=== PATIENT | male | born 1930 | race Caucasian/White ===

== ENCOUNTER 2016-05-12 06:57 | Observation (INO) | payer OTHER ==
[2016-05-12] VITALS (15 sets, daily range): BP systolic 109–167; BP diastolic 58–99; PULSE 86–102; TEMP 36.3–37; O2SAT 96–100; Ht 177.8 cm; Wt 88.9 kg
[~2016-05-12] VITALS: Ht 177.8 cm; Wt 88.9 kg
[2016-05-12] MEDS ORDERED: METO-217 PO (07:25)
[2016-05-12] MEDS ORDERED: PRED-301 PO (07:25)
--- NOTE | 2016-05-12 08:30 | Procedure Note ---
Pre-Mod Sedation Assessment General Date of Moderate Sedation: May 12, 2016. Vital Signs: Vital Signs Past 12 Hours Date Time Temp Pulse Resp B/P Pulse Ox O2 Delivery O2 Flow Rate FiO2 05/12/16 07:26 36.9 102 16 167/99 97 Room Air Review Cardiovascular: + tachycardia, + irregularly irregular Abdomen: soft Lungs: lungs clear Airway Class: II Pre-Sedation Airway Assessment Oral Cavity: WNL Short Thick Neck: No Hx of Sleep Apnea: No Smoking Status: Never Smoker Mallampati Classification: Class II ASA Classification: Class II Procedure Planning Contraindications-for Mod Sed: None Yes Notes The planned sedation has been discussed with the patient and consent obtained. I have identified the patient, determined the appropriateness of sedation and have assessed the patient immediately prior to the procedure. All medicine(s) and interventions are by my order.
--- NOTE | 2016-05-12 08:30 | History & Physical Bridge Note ---
H&P Re-Evaluation Bridge Note: I have examined the patient, reviewed the History & Physical and in the interval since the performance of the History & Physical I have noted the following changes of clinical significance: No changes noted
[2016-05-12] MEDS ORDERED: KEFZOL SPECIAL PROCEDURE STOCK 1 GM ADDVIAL IV ONE (08:36)
[2016-05-12] MEDS ORDERED: FENTANYL CITRATE INJ 50 MCG/1 ML 2 ML VIAL ONE ×2 (08:37→09:36)
[2016-05-12] MEDS ORDERED: LIDOCAINE HCL 1% 20 ML VIAL ONE (08:37)
[2016-05-12] MEDS ORDERED: MIDAZOLAM HCL 5 MG/ML 1 ML VIAL ONE (08:37)
[2016-05-12] MEDS ORDERED: BACITRACIN 50000 UNIT VIAL ONE ×2 (08:38→09:36)
[2016-05-12] MEDS ORDERED: BUPIVACAINE 0.5 % 5 MG/1 ML MPF 30ML VIAL ONE (08:38)
[2016-05-12] MEDS ORDERED: WARF5TAB90 PO (09:10)
[2016-05-12] MEDS ORDERED: ARTISOL12 OP (09:10)
[2016-05-12] MEDS ORDERED: ATOR10TA82 PO (09:10)
[2016-05-12] MEDS ORDERED: LATA0.5S OP (09:10)
[2016-05-12] MEDS ORDERED: PYRI60TA2 PO (09:10)
[2016-05-12] MEDS ORDERED: LOSA1TAB PO (09:10)
[2016-05-12] MEDS ORDERED: DOCU-94 PO (09:10)
[2016-05-12] MEDS ORDERED: CHOL1000 PO (09:10)
[2016-05-12] MEDS ORDERED: DILT120C PO (09:10)
[2016-05-12] MEDS ORDERED: MULT-618 PO (09:10)
[2016-05-12] MEDS ORDERED: ASPI81TA28 PO (09:10)
[2016-05-12] MEDS ORDERED: MIDAZOLAM HCL 1 MG/ML 2ML VIAL ONE (09:36)
[2016-05-12] MEDS ORDERED: OXYCODONE/ACETAMINOPHEN 5-325 TAB PO PRN (10:45)
[2016-05-12] MEDS ORDERED: ACETAMINOPHEN 325 MG TAB PO PRN (10:45)
--- NOTE | 2016-05-12 10:52 | Discharge Summary ---
Discharge Summary Admission Date: Discharge Date: May 13, 2016 Discharge Disposition: Home Principal Diagnosis: Permanent atypical Atrial flutter with RVR, pt intolerant to AVN blockers Secondary Diagnoses/Problems: CAD s/p RCA PCI 12/2015 pAF on coumadin h/o PVI ablations in past and DCCV, refractory to multiple anti- arrhythmics HTN PVCs Myasthenia gravis Procedures: Single chamber permanent pacemaker followed by AVN ablation Hospital Course Pt admitted for elective VVI pacemaker implantation followed by AVN ablation due to permanent symptomatic atypical atrial flutter with RVR with patient intolerant to AVN blockers. Pt underwent procedure without any complications. Monitored overnight; on following morning ppm check he did have some intrinsic rhythm come through the AVN at 60bpm so the AVN ablation maybe not complete-we will monitor and assess in follow up. and discharged home in stable condition. Total time spent on discharge = This includes examination of the patient, discharge planning, medication reconciliation, and communication with other providers. Discharge Instructions ACTIVITY RECOMMENDATIONS: * Do not raise affected arm over head for 6 weeks. SPECIAL CARE INSTRUCTIONS: * If bleeding occurs, apply direct pressure to area for 5 minutes. * Call your doctor if you have severe pain, fever, drainage or bleeding at site. * Keep dry for 48 hours. * Keep any scheduled doctor's appointment. * Implant Card - hand held device with website information given. SKIN IRRITATION: * You may experience some redness and/or swelling in the area where radiation was administered. If any skin irritation occurs, please contact your family physician. FOLLOW UP VISIT: Keep any scheduled doctor appointments.
--- NOTE | 2016-05-12 10:55 | Discharge Instructions ---
Discharge Instructions Admission Reason for Admission: A-FIB Discharge Discharge Diagnosis / Problem: permanent atypical atrial flutter with RVR Discharge Goals Goal(s): Improve function Activity Recommendations Activity Limitations: as noted below Lifting Limitations: no more than 10 pounds (with the left arm for 3 weeks; do not lift the left elbow over the left shoulder for 6 weeks) May Resume Sexual Activity: after follow-up appointment Shower/Bathe: tomorrow . Instructions / Follow-Up Instructions / Follow-Up Follow up in [place] [facility] in 7-10 days Current Hospital Diet Patient's current hospital diet: AHA Diet (Heart Healthy) Discharge Diet Recommended Diet: AHA Diet (Heart Healthy) Procedures Procedures Performed: single chamber pacemaker followed by AVN ablations Pending Studies Studies pending at discharge: no Medical Emergencies . Who to Call and When: Medical Emergencies: If at any time you feel your situation is an emergency, please call 911 immediately. . Non-Emergent Contact Non-Emergency issues call your: Data Center Operator . . "Provider Documentation" section prepared by Fabby Meier. VTE Core Measure Inpt VTE Proph given/why not?: Warfarin (Coumadin)
--- NOTE | 2016-05-12 11:01 | Procedure Note ---
Post-Mod Sedation Assessment General Date of Moderate Sedation May 12, 2016. Vital Signs: Vital Signs Past 12 Hours Date Time Temp Pulse Resp B/P Pulse Ox O2 Delivery O2 Flow Rate FiO2 05/12/16 07:26 36.9 102 16 167/99 97 Room Air Review - Discharge Criteria Vital Signs Stable: Yes Alert/Oriented/Conversant: Yes Returned to Baseline Mental St: Yes Nausea Absent/Minimal: Yes Pain/Discomfort/Absent/Minimal: Yes Normal/Baseline Respirations: Yes Active Bleeding?: No Pt Received D/C Instructions: N/A Prescriptions Given: None Specific Proced. D/C Criteria Distal Pulses Present (Cardiac: Yes Groin site assessed-Card Cath: Yes Voided Prior To Discharge: Yes Discharged Patients Adult Escort/Transportation: N/A
--- NOTE | 2016-05-12 11:01 | [facility] Post Operative Brief Note ---
Immediate Operative Summary Operative Date May 12, 2016. Pre-Operative Diagnosis permanent atypical atrial flutter with RVR Post-Operative Diagnosis permanent atypical atrial flutter, CHB Procedure(s) Performed single chamber pacemaker followed by AVN ablation Surgeon neelima wise Supervising Appraiser Surgeon(s) none Estimated Blood Loss <10cc Findings none Fluids (cc crystalloids) 500cc Specimens none Drains none Anesthesia 7mg versed and 175mcg fentantyl Complication(s) None Disposition petroleum refinery laborer holding
[2016-05-12 13:05] LABS: INR 1.5 (0.9-1.1)
--- NOTE | 2016-05-12 13:06 | OPERATIVE REPORT ---
DATE OF OPERATION: 05/12/2016 PREOPERATIVE DIAGNOSES: Permanent atrial flutter with rapid ventricular response intolerant to AV beto blockers. POSTOPERATIVE DIAGNOSES: Permanent atrial flutter, complete heart block. PROCEDURE: Single chamber rate responsive permanent pacemaker under fluoroscopic guidance, followed by peripheral venogram, followed then by an AV beto ablation. SURGEON: Dr. Fabby Meier DO. BUSINESS ANALYST ECOMMERCE: None. ANESTHESIA: 7 mg of Versed, 175 mcg of fentanyl. START 08:57 END 11:00 INTRAVENOUS FLUIDS: 500 mL. URINE OUTPUT: Not applicable. SPECIMENS: None. FINDINGS: None. CONDITION: Stable. ESTIMATED BLOOD LOSS: Less than 10 mL. INDICATIONS: This is an 86-year-old gentleman who has a past medical history for coronary artery disease in which he underwent a stent to the RCA in December 2015, paroxysmal atrial fibrillation where he underwent prior PVI ablations, 2 in [place] in 1999 and 2001 and another at [facility] [place] [facility] in 2006. He has failed multiple antiarrhythmic medicines. He has also been cardioverted in March 2013. Remains on Coumadin, hypertension, frequent PVCs on prior Holter monitors, seemed to improve with stopping antiarrhythmic, myasthenia gravis, permanent atypical atrial flutter. The patient has been trying multiple different AV beto carli combinations to control his heart rate due to his permanent atrial flutter, but he has been refractory to all of them and intolerant as well. Finally, after many months of trying we opted to go with a permanent pacemaker followed by an AV beto ablation. CONSENT: Consent was obtained prior to the patient going into the electrophysiology lab. The patient was informed of risks, benefits, alternatives to the procedure. Risks include but not limited to sudden cardiac , cardiac arrhythmias, cerebrovascular accident, myocardial infarction, injury to the blood vessels, chamber of the heart, lungs, bleeding and infection, possible hematoma and blood clots. The patient understood these risks and agreed to the procedure as planned. Informed consent was obtained. DESCRIPTION OF THE PROCEDURE: The patient was brought into the electrophysiology lab in a fasting state. He was connected to continuous pvc monitor. A time-out was performed to ensure patient's identity and procedure correctly. The patient was prepped and draped over the left infraclavicular space in normal surgical standard fashion. Moderate conscious sedation was given throughout the procedure for patient's comfort level. [place] precautions were maintained throughout the procedure. 10 mL of 1% lidocaine, bupivacaine mixture were given in the left deltopectoral groove. Incision was made in left deltopectoral groove. Further 10 mL of lidocaine, bupivacaine mixture were given once we were in and blunt dissection was performed down to identify the cephalic vein. Initially one could not be identified, so I did a peripheral venogram with 5-10 mL of IV contrast diluted in 10 mL of saline followed by 20 mL flushed and we identified the axillary and cephalic vein. I then continued with blunt dissection and found the cephalic vein, I isolated it using 0 silk ties, nicked it with an 11 blade, guidewire was inserted without any resistance. The 8-Montenegrin sheath was then inserted over the guidewire without any resistance. The guidewire and dilator were removed. The right ventricular lead was then placed into the right ventricle and positioned interatrial ventricular apex under fluoroscopic guidance. There was adequate pacing and sensing thresholds and no diaphragmatic stimulation with high output pacing. The lead was fixated to pectoralis muscle using 0 silk suture. An additional 5 mL of 1% lidocaine, bupivacaine mixture were given in the pectoralis fascia using blunt dissection over the pectoralis muscle within the fascia. A pacemaker pocket was created. The pocket was flushed with copious amounts of bacitracin saline wash. There was some backbleeding from the venous puncture site, so a pursestring using 2-[address] needle was placed. The lead was then attached to the pulse generator making sure that the pins were in appropriate position, passed the set screws and the set screws were all tightened. The pulse generator was then placed in the pocket and a stay stitch using 0 silk suture was used to sew down the pulse generator to the pectoralis muscle. The incision was closed in a 3-layer fashion using a 2-0 Vicryl interrupted suture followed by 3-0 Vicryl interrupted suture followed by a 4-0 Monocryl running stitch and Dermabond was applied. We then de-draped the patient and re-prepped over them bilateral groins. Then 10 mL of 1% lidocaine were given in the right groin for local anesthesia. Using the modified Seldinger technique, venous access was obtained with the right femoral vein. An 8-Montenegrin sheath was inserted over the guidewire without any resistance. The guidewire and dilator removed. A RF 8 mm Blazer XP standard curve ablation catheter was inserted and under fluoroscopic guidance positioned into the His bundle area. His bundle was recorded on the distal tip of the catheter and then radiofrequency ablation 4 times was given 30 seconds each, temperature of 60 degrees, 70 teixeira was the setting and a complete heart block was obtained. The last 2 ablations were reassurance ablations. Of note, the pacemaker was set to VVI 30 during the ablation. Then we did a 20 minute monitor post-ablation to ensure that the radiofrequency ablation had maintained with the pacemaker set at a heart rate of 80. After 20 minutes of adequate waiting the patient still remained in complete heart block. The pacemaker was retracted, threshold and impedance remained stable. The radiofrequency ablation catheter was removed from the body under fluoroscopic guidance. Then manual compression was used to create hemostasis with pulling of the 8-Montenegrin sheath in the right groin. EQUIPMENT: [employer] Produce[employer] SR MRI SureScan A3 SR01, serial number [id number]. Right ventricular lead, Medtronic 5076-58 cm, serial number [id number]. INTRAOPERATIVE TESTING: Right ventricular lead P waves were 10.8 millivolts, impedance 976 ohms, threshold 0.3 volts at 0.4 milliamps. FINAL MEASUREMENTS: After the AV beto ablation. R-waves were none as the patient was completely paced at 30 beats per minute. The impedance was 655 ohms, threshold 0.5 volts at 0.4 milliseconds. FINAL PARAMETERS: VVIR 90/110, right ventricular amplitude 5 volts, pulse width 0.4 milliseconds, sensitivity 0.9 millivolts. IMPRESSION: Successful implantation of a single chamber rate responsive permanent pacemaker under fluoroscopic guidance followed by peripheral venogram followed by an AV beto ablation secondary to permanent atypical atrial flutter with rapid ventricular response. PLAN: Monitor patient overnight, 12-lead ECG, chest x-ray. We will stop his Cardizem and metoprolol, otherwise he can continue his other home medications. He can get Coumadin tonight. He cannot lift the left elbow over the left shoulder for 6 weeks and he cannot lift more than 10 pounds for 3 weeks with the left arm and he is not allowed to shoot a shotgun from the left shoulder anymore. He can shower in 2 days. We will see him in our [place] office in 7-10 days for device and wound check. I attest to the content of the Intraoperative Record and any orders documented therein. Any exceptions are noted below. MTDD
[2016-05-12] MEDS: ARTIFICIAL TEARS OP SOLN OP SCH ×6 (14:21→20:29)
[2016-05-12] MEDS ORDERED: WARFARIN SOD 5 MG TAB PO ONE (18:00)
[2016-05-12] MEDS: DOCUSATE SODIUM 100 MG CAP PO SCH (20:25)
[2016-05-12] MEDS: PYRIDOSTIGMINE BROMIDE 60 MG TAB PO SCH (20:27)
[2016-05-12] MEDS ORDERED: LATANOPROST 0.005% OP SOLN 2.5 ML BTL OP SCH (21:00)
[2016-05-12] MEDS ORDERED: ATORVASTATIN 10 MG TAB PO SCH (21:00)
[2016-05-13 04:15] VITALS: BP 137/71; PULSE 89; TEMP 36.9; O2SAT 96
[2016-05-13 06:04] LABS: INR 1.3 (0.9-1.1); PROTHROMBIN TIME (PATIENT) 14.2 SECONDS (9.0-12.0)
[2016-05-13 07:41] VITALS: BP 134/68; PULSE 90; TEMP 36.4; O2SAT 96
[2016-05-13] MEDS: DOCUSATE SODIUM 100 MG CAP PO SCH (08:10)
[2016-05-13] MEDS: PYRIDOSTIGMINE BROMIDE 60 MG TAB PO SCH (08:11)
[2016-05-13] MEDS: ARTIFICIAL TEARS OP SOLN OP SCH ×2 (08:13)
--- NOTE | 2016-05-13 08:13 | DIAGNOSTIC IMAGING REPORT ---
CHEST 2 VIEWS ROUTINE CLINICAL HISTORY: Pacemaker insertion. COMPARISON STUDY: No previous studies for comparison. FINDINGS: A single lead left subclavian pacemaker is in place. Lead tip projects over the right ventricle. There is no pneumothorax. There is no evidence of pulmonary edema. There are median sternotomy wires and anterior cervical spine fusion. There is no consolidation. IMPRESSION: No pneumothorax following placement of a left subclavian pacemaker. Electronically signed by: Tomas Conte M.D. 05/13/2016 8:11 AM
[2016-05-13] MEDS ORDERED: CHOLECALCIFEROL 1000 INTER.UNIT TAB PO SCH (09:00)
[2016-05-13] MEDS ORDERED: LOSARTAN POTASSIUM 25 MG TAB PO SCH (09:00)
[2016-05-13] MEDS ORDERED: ASPIRIN 81 MG ECTAB PO SCH (09:00)
[2016-05-13] MEDS ORDERED: CEROVITE ADV FORMULA TAB PO SCH (09:00)
[2016-05-13 09:46] VITALS: BP 134/68; PULSE 90; TEMP 36.4; O2SAT 96
--- NOTE | 2016-05-13 16:11 | Cardiology Follow-Up ---
Subjective Subjective Date of Service: May 13, 2016. Pt evaluation today including: conversation w/ patient, physical exam, chart review, lab review, review of studies Pain: minimal discomfort at incision site Review of Systems Constitutional: + weakness Respiratory: No shortness of breath Cardiac: No chest pain, No edema, No palpitations Abdomen: No diarrhea, No nausea Endo: + fatigue Objective Vital Signs Last Vital Signs Documentation Date Time Temp Pulse Resp B/P Pulse Ox O2 Delivery O2 Flow Rate FiO2 05/13/16 09:46 36.4 90 20 96 Room Air 05/13/16 07:41 134/68 Physical Exam: General Appearance: WD/WN, no apparent distress Eyes: bilateral eyes EOMI, bilateral eyes PERRL, bilateral eyes normal inspection Neck: supple Respiratory/Chest: lungs clear, normal breath sounds Cardiovascular: regular rate, rhythm, no edema, no murmur Neurologic/Psychiatric: alert, oriented x 3 Skin: normal color (left pectoral incision intact; no hematoma; mild ecchymosis ), warm/dry Assessment and Plan Impression: 1. permanent atypical symptomatic atrial flutter with RVR refractory and intolerant to AVN blockers s/p VVI ppm and AVN ablation 05/12/2015 2. CAD s/p PCI in 12/2015 3. PVCs 4. HTN Plan: -normal pacemaker function -Ok for discharge home -Continue home medications with the exception of BB and CCB -F/u in our office next week as scheduled -F/u with me in 1 month Discharge planning: home Medications: Pacemaker Interrogation: There is now underlying ventricular rhythm in 60s RV testing stable and WNL ECG: Vpaced 90bpm underlying flutter CXR: No PTX RV lead in position Medications Administered Medications (Trade) Dose Ordered Sig/Cyn Route Start Time Stop Time Status Last Admin Dose Admin Cefazolin Sodium (Kefzol IV) 2 gm STK-MED ONCE IV 05/12/16 08:36 05/12/16 08:38 DC 05/12/16 08:36 2 GM Fentanyl Citrate (Fentanyl Inj) 100 mcg STK-MED ONCE .ROUTE 05/12/16 08:37 05/12/16 08:38 DC 05/12/16 08:37 100 MCG Aspirin (Ecotrin Tab) 81 mg DAILY PO 05/13/16 09:00 05/13/16 12:04 DC 05/13/16 08:13 81 MG Cholecalciferol (Vitamin D Tab) 1,000 inter.unit DAILY PO 05/13/16 09:00 05/13/16 12:04 DC 05/13/16 08:11 1,000 INTER.UNIT Latanoprost (Xalatan Oph Soln) 1 drops HS OP 05/12/16 21:00 05/13/16 12:04 DC 05/12/16 20:27 1 DROPS Losartan Potassium (coZAAR TAB) 25 mg DAILY PO 05/13/16 09:00 05/13/16 12:04 DC 05/13/16 08:11 25 MG Multivitamins/ Minerals (Multivitamin W/ Minerals Tab) 1 tab DAILY PO 05/13/16 09:00 05/13/16 12:04 DC 05/13/16 08:12 1 TAB Prednisone (PredniSONE TAB) 5 mg DAILY PO 05/13/16 09:00 05/13/16 12:04 DC 05/13/16 08:12 5 MG Pyridostigmine Henderson (Mestinon Tab) 60 mg BID PO 05/12/16 21:00 05/13/16 12:04 DC 05/13/16 08:11 60 MG Warfarin Sodium (Coumadin Tab) 5 mg ONE ONCE PO 05/12/16 18:00 05/12/16 18:01 DC 05/12/16 18:10 5 MG Artificial Tears (Artificial Tears) 1 drops QID OP 05/12/16 13:00 05/13/16 12:04 DC 05/13/16 08:13 1 DROPS Last 24 Hours Test 05/13/16 05:20 Prothrombin Time 14.2 SECONDS Prothromb Time International Ratio 1.3
[2016-06-04] MEDS ORDERED: METO25TA56 PO (07:43)
== END 2016-05-13 12:04 | disposition home or self-care (01) ==
LOC: C.ACU 06:57 → C.2E 10:46
PROVIDERS: ADMIT Internal Medicine; ATTEND Internal Medicine
DX: I48.92 Unspecified atrial flutter (principal); I44.2 Atrioventricular block, complete; I25.10 Atherosclerotic heart disease of native coronary artery without angina pectoris; I10 Essential (primary) hypertension; I48.0 Paroxysmal atrial fibrillation; I49.3 Ventricular premature depolarization; Z79.01 Long term (current) use of anticoagulants

== ENCOUNTER → 2016-06-04 | Day surgery (SDC) | payer OTHER ==
[~2016-06-04] VITALS: Ht 177.8 cm; Wt 89.0 kg
[~2016-06-04] MED LIST: ACETAMINOPHEN 325 MG TAB PO PRN; ARTISOL12 OP; ASPI81TA28 PO; ATOR10TA88 PO; ATROPINE SULFATE 0.1 MG/ML 5ML SYR IV PRN; CHOL1000 PO; DOCU-94 PO; FENTANYL CITRATE INJ 50 MCG/1 ML 2 ML VIAL ONE; HEPARIN SOD (PORCINE) 1000 UNIT/ML 10 ML VIAL ONE; LATA0.5S OP; LOSA1TAB PO; METO25TA56 PO; MIDAZOLAM HCL 1 MG/ML 2ML VIAL ONE; MULT-618 PO; NITROGLYCERIN/D5W 100MCG/ML 20ML SYR ONE; NiCARDipine HCL INJ 2.5 MG/ML 10 ML AMP ONE; ONDANSETRON INJ 2 MG/ML 2 ML VIAL IV PRN; PRED-301 PO; PYRI60TA2 PO; SODIUM CHLORIDE 0.9% 1000ML 250 ML IV PRN; WARF5TAB90 PO
[2016-06-04 07:15] VITALS: BP 172/82; PULSE 81; TEMP 36.6; O2SAT 96; Ht 177.8 cm; Wt 89.0 kg
--- NOTE | 2016-06-04 09:58 | Cardiac Catheterization ---
Procedure Note Procedure Date Jun 04, 2016. Pre-Procedure Diagnosis CAD, Cardiothoracic Symptom AUC Score 8 Post-Procedure Diagnosis Mild CAD Procedure(s) Performed Coronary Angiography, Left Heart Cath Room Service Server Dr. Astudillo Dough Sheeter(s) Valentín ACQUISITION MANAGER Estimated Blood Loss 5cc Medication(s) Heparin, Nicardipine, Nitroglycerin, Versed, Lidocaine 1% Summary of Findings Patent RCA stent otherwise nonobstructive CAD Elevated LVEDP Hemodynamics Rest Ao: 109/62/85 Final Ao: 129/60/90 LV: 130/18/23 Recommendations Medical therapy and/or Counseling Specimens None Radiation Exposure (mGy) 718 Contrast (mls) 80 Procedural Complication(s) None Disposition Craft Coordinator Holding/Recovery ACC Data Cardiac Status Clinical evaluation leading to the procedure CAD Presntation: Stable angina Anginal Classification: CCS III Heart Failure: No Cardiogenic Shock w/in 24Hrs: No Cardiac Arrest w/in 24Hrs: No Stress studies past 6 months: Yes Stress Testing w/SPECT MPI: Yes - Negative Coronary Anatomy Dominant: Right Left Main (% Stenosis): Normal LAD (% Stenosis): Ostial (0%), Proximal (40%), Mid (20%), Distal (10%) D1 (% Stenosis): Ostial (40%), Proximal (0%), Mid (0%), Distal (10%) D2 (% Stenosis): Ostial (0%), Proximal (10%), Mid (40% of medial limb after bifurcation), Distal (10%) Circumflex (% Stenosis): Normal OM1 (% Stenosis): Ostial (0% small vessel), Proximal (0%), Mid (30%), Distal (0 %) RCA (% Stenosis): Ostial (20% ostial taper), Proximal (0%), Mid (patent stent) , Distal (30%) R PDA (% Stenosis): Ostial (0%), Proximal (10%), Mid (10%), Distal (0%) R PL1 (% Stenosis): Normal R PL2 (% Stenosis): Normal Ramus (% Stenosis): Ostial (20%), Mid (0%), Distal (0%), Proximal (0%) Diagnostic Status: Elective Closure Device Percutaneous Entry Location: Radial Closure Device: Radial Band Recommendations: Medical therapy and/or Counseling Intraprocedure Events Significant Dissection: No Perforation: No
--- NOTE | 2016-06-04 10:03 | Discharge Instructions ---
Discharge Instructions Procedure Procedure Date: Jun 04, 2016. Reason for Visit: Chest Pain, Munoz. Discharge Discharge Date: Jun 04, 2016. Discharge Diagnosis: patent RCA stent Last Recorded Wt (Kilograms): 89 Anesthesia Post Anesthesia Instructions: If you have had General Anesthesia or IV Sedation: * Do not drive today. * Resume driving when surgeon permits. * Do not make important decisions or sign legal documents today. * Call surgeon for: 1. Temperature elevations greater than 101 degrees F. 2. Uncontrollable pain. 3. Excessive bleeding. 4. Persistent nausea and vomiting. 5. Medication intolerance (nausea, vomiting or rash). * For nausea and vomiting use only clear liquids such as: tea, soda, bouillon until nausea subsides, then gradually increase diet as tolerated. * If you have any concerns or questions, call your surgeon's office. If physician is unavailable and it is an emergency, call 911 or go to the nearest emergency room. Instructions Activity Recommendations: limitations as noted below Allergies: Coded Allergies: Meperidine (Verified Allergy, Severe, respiratory distress, 05/12/16) Acetaminophen (Unverified Allergy, Unknown, irregular heart rate, 06/04/16) Amoxicillin (Unverified Allergy, Unknown, exacerbates myasthenia, 06/04/16) Doxazosin (Unverified Allergy, Unknown, "affects heart", 06/04/16) Felodipine (Unverified Allergy, Unknown, dizziness, 06/04/16) Magnesium Sulfate (Unverified Allergy, Unknown, exacerbates myasthenia, ) Oxycodone (Unverified Allergy, Unknown, irregular heart rate, 06/04/16) Propoxyphene (Unverified Allergy, Unknown, affects heart, 06/04/16) Timolol (Unverified Allergy, Unknown, light headed, 06/04/16) Tramadol (Unverified Allergy, Unknown, unknown, 06/04/16) Morphine (Unverified Adverse Reaction, Unknown, PALPITATIONS, 05/12/16) Provider Instructions ACTIVITY RECOMMENDATIONS: Excess manipulation of the wrist should be avoided for the next 24-48 hours. * No lifting over 2 pounds (approximately a 1/2 gallon of milk) with the utilized arm for 24 hours. * No strenuous activity such as bowling or tennis for 3 days. * Keep the site of the procedure covered with a bandage for 24 hours. *You may shower the day after the procedure. Do not take a tub bath or submerge the puncture site in water for the next 3 days. *Do not operate any motorized equipment for 3 days. SPECIAL CARE INSTRUCTIONS: The site may be slightly bruised and sore following your procedure. Should any of the following occur, contact the Dr. who performed your procedure. 1. Redness/inflammation, swelling, chills, or fever, or colored drainage at procedure site within 3-7 days after your procedure. 2. Coldness, discoloration, ongoing numbness, severe pain, or swelling. Expect mild tingling of hand and tenderness at the puncture site for up to three days. If this persists beyond three days, or other symptoms develop, notify the Dr. who performed your procedure. BLEEDING: If the procedure site on your wrist begins to bleed, do not panic 1. Place 1 or 2 fingers firmly just slightly above the insertion site to stop the bleeding. You may be able to feel your pulse as you hold pressure. 2. Lift your finger after 5 minutes to see if the bleeding has stopped. 3. Once the bleeding has stopped, gently wipe the wrist area clean with a bandage. * If the bleeding from your wrist does not stop after 10 minutes, or if there is a large amount of bleeding or spurting, call 911 (do not drive yourself to the hospital). SKIN IRRITATION: * You may experience some redness and/or swelling in the area where radiation was administered. If any skin irritation occurs, please contact your family physician. FOLLOW UP VISIT: Keep any scheduled doctor appointments. Follow Up Follow-up with: Dr. Garrido as scheduled. Derick Braxton Recommendations: Call your doctor if: * Temperature above 101 degrees * Pain not relieved by pain medicine ordered * There is increased drainage or redness from any incision * You have any unanswered questions or concerns. Your Doctors Instructions noted above were prepared by provider Tj Astudillo. Patient Signature Section: Patient Instructions Signature Page Ra Subramanian Patient (or Guardian) Signature/Date: I have read and understand the instructions given to me by my caregivers. Caregiver/RN/Doctor Signature/Date: The above-named patient and/or guardian has received patient instructions on this date. + Original Patient Signature Page (only) stays with chart. Please make copy for patient.
[2016-06-04 12:15] VITALS: BP 148/60; PULSE 78; O2SAT 97
--- NOTE | 2016-06-05 13:13 | Procedure Note ---
Pre-Mod Sedation Assessment General Date of Moderate Sedation: Jun 05, 2016. Review Cardiovascular: regular rate, rhythm, no edema, no JVD Abdomen: normal bowel sounds, non tender, soft Lungs: chest non-tender, lungs clear, normal breath sounds Pre-Sedation Airway Assessment Oral Cavity: WNL Short Thick Neck: No Hx of Sleep Apnea: No Smoking Status: Former Smoker Mallampati Classification: Class III ASA Classification: Class III Procedure Planning Contraindications-for Mod Sed: None Yes Notes The planned sedation has been discussed with the patient and consent obtained. I have identified the patient, determined the appropriateness of sedation and have assessed the patient immediately prior to the procedure. All medicine(s) and interventions are by my order.
--- NOTE | 2016-06-05 13:13 | Procedure Note ---
Post-Mod Sedation Assessment General Date of Moderate Sedation Jun 05, 2016. Review - Discharge Criteria Vital Signs Stable: Yes Alert/Oriented/Conversant: Yes Nausea Absent/Minimal: Yes Pain/Discomfort/Absent/Minimal: Yes Normal/Baseline Respirations: Yes Active Bleeding?: No Pt Received D/C Instructions: Yes Prescriptions Given: None Specific Proced. D/C Criteria Distal Pulses Present (Cardiac: Yes Groin site assessed-Card Cath: Yes Voided Prior To Discharge: Yes Discharged Patients Adult Escort/Transportation: Yes
== END | disposition home or self-care (01) ==
LOC: C.CATH 06:44
PROVIDERS: ATTEND Internal Medicine Cardiovascular Disease
DX: I25.10 Atherosclerotic heart disease of native coronary artery without angina pectoris (principal); I48.92 Unspecified atrial flutter; I10 Essential (primary) hypertension; D50.9 Iron deficiency anemia, unspecified; K21.0 Gastro-esophageal reflux disease with esophagitis; E78.5 Hyperlipidemia, unspecified; M47.817 Spondylosis without myelopathy or radiculopathy, lumbosacral region; M15.9 Polyosteoarthritis, unspecified; M50.30 Other cervical disc degeneration, unspecified cervical region; M96.1 Postlaminectomy syndrome, not elsewhere classified; M51.26 Other intervertebral disc displacement, lumbar region; G70.00 Myasthenia gravis without (acute) exacerbation; E55.9 Vitamin D deficiency, unspecified; D31 Benign neoplasm of eye and adnexa; H91.90 Unspecified hearing loss, unspecified ear

== ENCOUNTER → 2016-06-16 | Outpatient (CLI) | payer OTHER ==
[~2016-06-16] MED LIST changes: -ACETAMINOPHEN 325 MG TAB PO PRN; -ATROPINE SULFATE 0.1 MG/ML 5ML SYR IV PRN; -CHOL1000 PO; -FENTANYL CITRATE INJ 50 MCG/1 ML 2 ML VIAL ONE; -HEPARIN SOD (PORCINE) 1000 UNIT/ML 10 ML VIAL ONE; -MIDAZOLAM HCL 1 MG/ML 2ML VIAL ONE; -NITROGLYCERIN/D5W 100MCG/ML 20ML SYR ONE; -NiCARDipine HCL INJ 2.5 MG/ML 10 ML AMP ONE; -ONDANSETRON INJ 2 MG/ML 2 ML VIAL IV PRN; -SODIUM CHLORIDE 0.9% 1000ML 250 ML IV PRN
== END | disposition home or self-care (01) ==
LOC: C.LAB1850 15:23
PROVIDERS: ATTEND Internal Medicine Pulmonary Disease
DX: R06.02 Shortness of breath (principal)

== ENCOUNTER 2020-01-03 06:45 | Observation (INO) ==
--- NOTE | 2019-12-29 14:55 | Anesthesiology Consultation ---
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 Travels to [facility]. No known Covid positive contacts or Covid related symptoms. Scheduled for preop Covid testing 12/30/19. Seen by cardio 12/18/2019 = ongoing WATTS symptoms. This is secondary to newly recognized cardiomyopathy with ejection fraction of 25%. Patient is status post cardiac catheterization with nonobstructive CAD and patent stents. Cardiomyopathy seems likely secondary to RV pacing. Patient is seeing electrophysiology later this week to discuss upgrading his device to a biventricular pacemaker. History Surgery Operation Date: 01/03/20 08:00 Proposed Procedures p Biventricular Pacemaker Upgrade w/Anesthesia - Fabby Meier DO Height/Weight Height: 5 ft 10 in Weight: 77.111 kg Allergies Allergy/AdvReac Type Severity Reaction Status Date / Time morphine Allergy Severe PALPITATION Verified 12/29/19 11:55 S propoxyphene Allergy Severe affects Verified 12/29/19 11:55 heart felodipine Allergy Intermediate dizziness Verified 12/29/19 11:55 timolol Allergy Intermediate light Verified 12/29/19 11:55 headed tramadol Allergy Unknown NOT SURE Verified 12/29/19 11:55 OF REACTION doxazosin AdvReac Severe "affects Verified 12/29/19 11:55 heart" magnesium sulfate AdvReac Severe exacerbates Verified 12/29/19 11:55 myasthenia meperidine AdvReac Severe respiratory Verified 12/29/19 11:55 distress amoxicillin AdvReac Intermediate exacerbates Verified 12/29/19 11:55 myasthenia oxycodone AdvReac Intermediate irregular Verified 12/29/19 11:55 heart rate Medications Home Medications Medication Instructions Recorded Confirmed Last Taken carboxymethylcellulose sodium 1 drp OPHTHALMIC (EYE) UD 12/29/19 12/29/19 Unknown [Artificial Tears (cmc)] cholecalciferol (vitamin D3) 50 mcg PO DAILY 12/29/19 12/29/19 Unknown [Vitamin D3] furosemide 80 mg PO BID 12/29/19 12/29/19 Unknown latanoprost 1 drp OPHTHALMIC (EYE) HS 12/29/19 12/29/19 Unknown losartan 25 mg PO QAM 12/29/19 12/29/19 Unknown multivitamin 1 tab PO QAM 12/29/19 12/29/19 Unknown nitroglycerin 0.4 mg SUBLINGUAL UD PRN 12/29/19 12/29/19 Unknown pyridostigmine bromide [Mestinon] 60 mg PO TID 12/29/19 12/29/19 Unknown rosuvastatin 20 mg PO QPM 12/29/19 12/29/19 Unknown warfarin [Coumadin] 5 mg PO UD 12/29/19 12/29/19 Unknown Past Medical History Medical History (Updated 12/29/19 @ 14:48 by Beth Perea PA-C) Atrial fibrillation BPH (benign prostatic hyperplasia) CAD (coronary artery disease) s/p stent to D2 second diagnoal and RCA Congestive heart failure Degenerative disc disease Depression Glaucoma Hearing deficit Hyperlipidemia Hypertension 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 MEIER) Past Family History Family History Other No significant family history Past Surgical History Surgical History (Updated 12/29/19 @ 14:52 by Beth Perea PA-C) H/O cardiac radiofrequency ablation X 3 History of back surgery LUMBAR X 2 History of cataract surgery RT/LEFT History of cervical spinal surgery History of cholecystectomy History of colonoscopy History of esophagogastroduodenoscopy (EGD) History of heart artery stent 2 STENTS PLACED (LAST TIME 05/2017) [facility] History of herniorrhaphy INGUINAL History of repair of rotator cuff RT/LEFT History of thymectomy History of tonsillectomy History of tooth extraction History of total knee replacement RT/LEFT Social History Smoking Status: Never smoker Do You Dip or Chew Tobacco: No Hx Alcohol Use: Yes alcohol intake frequency: holidays/special occasions only Hx Substance Use: No Testing Laboratory Results 12/28/2019 = SODIUM: 143 POTASSIUM: 4.3 CHLORIDE: 98 CO2: 31 BUN: 21 CREATININE: 1.0 GLUCOSE: 79 12/27/2019 = PT: 20.5 INR: 1.74 12/20/19= WBC: 6.23 H/H: 14.7/46.3 PLATELETS: 217 Electrocardiogram Date: 12/19/19 Sinus rhythm with complete heart block and ventricular paced rhythm with occasional PVCs at 83 bpm. Chest X-Ray Date: 12/19/19 Lungs relatively well expanded. Partial elevation/eventration of the right hemidiaphragm again seen. Mild prominence of interstitial parenchymal markings. Echocardiogram Date: 11/30/19 EF: 25 to 29% LV Function: dysfunctional (Severely reduced) Diffuse hypokinesis to akinesis. Right ventricular systolic function is mildly reduced. Dilated IVC with reduced collapsibility with sniff indicates an elevated right atrial pressure of 15 mmHg. Mild MR and TR. Stress Test Date: 11/29/19 Type: nuclear Abnormal nuclear stress test. There is a predominantly fixed defect in the inferior wall (difficult to interpret due to artifact) however there may be suggestion of kayla-infarct ischemia. LV ejection fraction is calculated at 37%. There is moderate diffuse hypokinesis. Cardiac Catheterization Date: 11/30/19 Proximal LAD with 30% disease. Previously placed stent in second diagonal branch is widely patent. Sub-branch of diagonal 2 with ostial 60% disease. Previously placed RCA stent is widely patent. LMno evidence of disease. Circumflexmildly diseased Other Testing Pacemaker Check 10/19/19= Single chamber pacemaker. [employer]. Implanted 05/12/16. Battery life 3.01 V with estimated longevity of 6.5 years. RV paced 97%. Mode VVIR. Impression : Normal single-chamber pacemaker function. Stable pacing and sensing thresholds. Adequate battery reserve.
[~2020-01-03 06:45] MED LIST changes: -ARTISOL12 OP; -ASPI81TA28 PO; -ATOR10TA88 PO; +CLINDAMYCIN 600 MG/54 ML BAG IV SCH; -DOCU-94 PO; +LACTATED RINGER'S 1,000 ML IV SCH; -LATA0.5S OP; -LOSA1TAB PO; -METO25TA56 PO; -MULT-618 PO; -PRED-301 PO; -PYRI60TA2 PO; -WARF5TAB90 PO
--- OUTSIDE RECORDS SUMMARY | 2020-01-03 06:47 | External Medical Summary | Continuity of Care Document ---
:1930 Author Name Asha Souza, Provider Address Unavailable Unavailable , Care Team Providers Name Role Phone Unavailable Unavailable Unavailable Bhupendra Oliveira DO Unavailable [email or web address] Unavailable Unavailable Unavailable Unavailable Unavailable Problems Myasthenia gravis (358.00) (G70.00) Moderate persistent asthma (493.90) (J45.40) Restrictive lung disease (518.89) (J98.4) SOB (shortness of breath) (786.05) (R06.02) Allergies and Adverse Reactions ciprofloxacin (Allergy) Doxazosin Mesylate TABS (Allergy) felodipine (Allergy) Morphine Derivatives (Allergy) oxyCODONE HCl TABS (Allergy) Percocet TABS (Allergy) propoxyphene (Allergy) Sympathomimetics (Allergy) timolol (Allergy) Medications Breo Ellipta 100-25 MCG/INH Inhalation A erosol Powder Breath Activated; ONE INHALATION DAILY. AFTER INHALATION RINSE MOUTH WITH WATER & SPIT.USE SAME TIME EACH DAY, NO MORE THAN 1 TIME IN 24 HOURS DO Bhupendra Oliveira Start: Quantity: 1 Refills: 5 predniSONE 5 MG Oral Tablet; TAKE 1 TABLET DIRECTED. , M. D. Start: 24-Sep-2016 Refills: 0 Centrum Silver TABS , M.D. Refills: 0 Latanoprost 0.005 % Ophthalmic Solution , M.D. Refills: 0 Vitamin D (Cholecalciferol) 25 MCG (1000 UT) Oral Capsule; TAKE 2 CAPSULES DAILY , M.D. Refills: 0 Artificial Tears 0.1-0.3 % Ophthalmic Solution , M.D. Refills: 0 Warfarin Sodium TABS , M.D. Refills: 0 Aspirin 81 MG TABS; TAKE 1 TABLET Every other day , M.D. Refills: 0 Atorvastatin Calcium 10 MG Oral Tablet; TAKE 1 TABLET TWICE WEEKLY , M.D. Refills: 0 Losartan Potassium 50 MG Oral Tablet; take 1/2 tablet daily , M.D. Refills: 0 Metoprolol Succinate ER 25 MG Oral Table t Extended Release 24 Hour; TAKE 1 TABLET DAILY. , M.D. Refills: 0 ProAir HFA 108 (90 Base) MCG/ACT Inhalat ion Aerosol Solution; INHALE 2 PUFFS 4 times daily , M.D. Refills: 0 Mestinon 60 MG Oral Tablet; TAKE 1 TABLET 3 TIMES DAILY. , M .D. Refills: 0 Procedures Procedures not documented Immunizations Immunizations not documented Social History - Smoking Status Ex-smoker Plan of Treatment Planned Observations Planned Goals not documented Results No Known Results Results not documented
[2020-01-03] MEDS ORDERED: LIDOCAINE HCL 2% 2 ML VIAL/AMP(20MG/ML) INFIL ONE (07:57)
[2020-01-03] MEDS ORDERED: MIDAZOLAM HCL 1 MG/ML 2ML VIAL ONE (07:57)
[2020-01-03] MEDS ORDERED: PROPOFOL IV EMULSION 10 MG/ML 100 ML VIAL IV ONE (07:57)
[2020-01-03] MEDS ORDERED: fentaNYL citrate 100 MCG/2 ML VIAL ONE (07:58)
[2020-01-03] MEDS ORDERED: BUPIVACAINE 0.25% 30 ML VIAL ONE (08:06)
[2020-01-03] MEDS ORDERED: LIDOCAINE HCL 1% 20 ML VIAL ONE (08:06)
[2020-01-03] MEDS ORDERED: BACITRACIN INJ 50,000 UNIT VIAL ONE (08:06)
--- NOTE | 2020-01-03 08:07 | History & Physical Bridge Note ---
Date of Service January 03, 2020 History & Physical Bridge Note I have examined the patient, reviewed the History & Physical and in the interval since the performance of the History & Physical I have noted the following changes of clinical significance: no changes noted
[2020-01-03] MEDS ORDERED: PROPOFOL IV EMULSION 10 MG/ML 20 ML VIAL IV ONE (11:07)
[2020-01-03] MEDS ORDERED: PHENYLEPHRINE 100MCG/ML 5ML SYR ONE (11:08)
--- NOTE | 2020-01-03 11:18 | Operative Report ---
Post Operative Report Pre & Post Diagnosis CHB, NICM, CHF Operation Date: 01/03/20 08:00 <No data on this case meets the specified criteria> I identified the patient and participated in the time-out.: Yes Procedure Operation Date: 01/03/20 08:00 Actual Procedures p Insert Pacer w/Existing Multi - Fabby Meier DO Surgeon Fabby Meier, DO [place] none Estimated Blood Loss 30 Findings Consistent with Post-Op Diagnosis Specimens none Description of Procedure see official report I attest to the content of the Intraoperative Record and any orders documented therein. Any exceptions are noted below.
[2020-01-03] MEDS ORDERED: NITROGLYCERIN SL 0.4 MG/TAB TAB SL PRN (11:19)
--- NOTE | 2020-01-03 11:25 | Discharge Summary ---
Date of Service January 04, 2020 Admission HPI Per Admitting Provider Pt admitted for elective upgrade to BiV ppm Admission Exam Per Admitting Provider aaox3, NAD NC/AT, EOMI Supple No JVD Nrl S1/S2, No murmur CTA b/l no w/r/r soft nt/nd no LE edema b/l skin intact no focal deficits Principal Diagnosis NICM s/p upgrade to BiV ppm Discharge Exam aaox3, NAD NC/AT, EOMI Supple No JVD Nrl S1/S2, No murmur CTA b/l no w/r/r soft nt/nd no LE edema b/l skin intact no focal deficits left pectoral incision intact, no hematoma mild ecchymosis Discharge Data Allergies Allergy/AdvReac Type Severity Reaction Status Date / Time morphine Allergy Severe PALPITATION Verified 12/29/19 11:55 S propoxyphene Allergy Severe affects Verified 12/29/19 11:55 heart felodipine Allergy Intermediate dizziness Verified 12/29/19 11:55 timolol Allergy Intermediate light Verified 12/29/19 11:55 headed tramadol Allergy Unknown NOT SURE Verified 12/29/19 11:55 OF REACTION doxazosin AdvReac Severe "affects Verified 12/29/19 11:55 heart" magnesium sulfate AdvReac Severe exacerbates Verified 12/29/19 11:55 myasthenia meperidine AdvReac Severe respiratory Verified 12/29/19 11:55 distress amoxicillin AdvReac Intermediate exacerbates Verified 12/29/19 11:55 myasthenia oxycodone AdvReac Intermediate irregular Verified 12/29/19 11:55 heart rate azithromycin AdvReac neuro Verified 01/03/20 07:22 complications cefuroxime [From Ceftin] AdvReac exacerbates Verified 01/03/20 07:22 MG ciprofloxacin [From Cipro] AdvReac exacerbates Verified 01/03/20 07:22 MG fluticasone AdvReac neuro Verified 01/03/20 07:22 [From Advair Diskus] complications salmeterol AdvReac neuro Verified 01/03/20 07:22 [From Advair Diskus] complications Procedures Performed Operation Date: 01/03/20 08:00 Actual Procedures p Insert Pacer w/Existing Multi - Fabbysandie Meier, DO Ordered Studies ECG: [employer] EXAMINER CXR: No PTX leads in position PPM Interrogation: Normal function and stable lead tesing 01/03/20 06:45 EP Lab Images for PACS ONCE Hospital Course (1) NICM (nonischemic cardiomyopathy): (2) PAF (paroxysmal atrial fibrillation): (3) CHB (complete heart block): (4) Chronic HFrEF (heart failure with reduced ejection fraction): Total Time Total Time Spent Total Time Spent (In Minutes): 39 Total Time Includes: Examination of the Patient, Medication Reconciliation and Other Discharge Plan Discharge Items Reason For Visit: UPGRADE TO BIV Discharge Diagnosis: CHB and NICM s/p upgrade to BiV ppm Condition on Discharge: Good Activity: As commented below Activity Comment: do not raise the left elbow over the left shoulder for 1 month Lifting: No more than 10 pounds Lifting Comment: do not lift more than 10 pounds with the left arm for 2 weeks Bathing: Keep incision dry Bathing Comment: keep dressing on and dry until wound check next week Follow-up/Referrals: Praneeth Stovall MD [Primary Care Provider] - Add Attending Provider Instructions: Device and wound check next week as scheduled in [place] You need a f/u with me or Patrick in 3 weeks Pending Studies at Discharge: No Stand-Alone Forms: My [facility] [address] Medications and DC Order Prescriptions: Continued multivitamin Tablet 1 tab PO QAM RF: 0 latanoprost 0.005 % Drops 1 drp OPHTHALMIC (EYE) HS RF: 0 furosemide 80 mg Tablet 80 mg PO BID RF: 0 pyridostigmine bromide [Mestinon] 60 mg Tablet 60 mg PO TID RF: 0 warfarin [Coumadin] 5 mg Tablet 5 mg PO UD RF: 0 losartan 25 mg Tablet 25 mg PO QAM RF: 0 nitroglycerin 0.4 mg Tablet, Sublingual 0.4 mg sublingual UD PRN (Reason: Chest Pain) RF: 0 rosuvastatin 20 mg Tablet 20 mg PO QPM RF: 0 cholecalciferol (vitamin D3) [Vitamin D3] 50 mcg (2,000 unit) Tablet 50 mcg PO DAILY RF: 0 Artificial Tears (cmc) 1 % Drops 1 drp OPHTHALMIC (EYE) UD RF: 0 Admission Data Admit Date/Time: 01/03/20 08:51 Attending Provider: Fabby Meier Admit Provider: Fabby Meier Primary Care Provider: Praneeth Stovall
[2020-01-03] MEDS ORDERED: ePHEDrine sulfate 50 MG/ML AMP IV PRN (11:36)
[2020-01-03] MEDS ORDERED: ATROPINE SULFATE 0.1 MG/ML 10ML SYR IV PRN (11:36)
--- NOTE | 2020-01-03 11:55 | Anesthesiology Progress Note ---
Date of Service January 03, 2020 Anesthesia Post Procedure Vital Signs Vital Signs: Temp Pulse Resp BP Pulse Ox 01/03/20 11:40 75 20 134/80 98 01/03/20 11:25 76 20 127/75 97 01/03/20 06:59 36.9 C 87 20 161/83 H 96 Transfer of Care Handoff Completed per policy Notes Mental Status: alert / awake / arousable Patient Amnestic to Procedure: Yes Nausea / Vomiting: adequately controlled Pain: adequately controlled Airway Patency, RR, SpO2: stable & adequate BP & HR: stable & adequate Hydration State: stable & adequate Anesthetic Complications: no major complications apparent
[2020-01-03] MEDS ORDERED: FUROSEMIDE 60 MG in SYRINGE 0 ML IV ONE (12:15)
[2020-01-03] MEDS ORDERED: ARTIFICIAL TEARS OP PRN (12:15)
[2020-01-03] MEDS: ACETAMINOPHEN 325 MG TAB PO PRN ×3 (12:16→23:37)
[2020-01-03 12:37] LABS: INR 1.4 (0.9-1.1); Prothrombin Time 14.8 Seconds (9.0-12.0)
[2020-01-03] MEDS: PYRIDOSTIGMINE BROMIDE 60 MG TAB PO SCH ×2 (13:36→20:52)
--- NOTE | 2020-01-03 15:27 | Electrocardiogram Report ---
Test Reason : Blood Pressure : / mmHG Vent. Rate : 063 BPM Atrial Rate : 069 BPM P-R Int : 000 ms QRS Dur : 156 ms QT Int : 488 ms P-R-T Axes : 000 071 -85 degrees QTc Int : 499 ms Ventricular-paced rhythm with occasional Premature ventricular complexes Abnormal ECG When compared with ECG of 12-MAY-2016 13:29, Premature ventricular complexes are now Present Vent. rate has decreased BY 35 BPM Confirmed by Shawn Lea ([id number]) on 01/03/2020 3:26:56 PM Referred By: Fabby Meier Confirmed By:Shawn Lea
[2020-01-03] MEDS ORDERED: WARFARIN SOD 5 MG TAB PO SCH (16:00)
[2020-01-03] MEDS ORDERED: FUROSEMIDE 80 MG TAB PO SCH (17:00)
[2020-01-03] MEDS ORDERED: LATANOPROST 0.005% OP SOLN 2.5 ML BTL OP SCH (21:00)
[2020-01-03] MEDS ORDERED: ROSUVASTATIN CALCIUM 20 MG TAB PO SCH (21:00)
[2020-01-04] MEDS: ACETAMINOPHEN 325 MG TAB PO PRN (06:41)
--- NOTE | 2020-01-04 07:35 | Anesthesiology Progress Note ---
Date of Service January 04, 2020 Anesthesia Post Procedure Vital Signs Vital Signs: Temp Pulse Pulse Resp BP BP Pulse Ox 01/04/20 05:14 36.6 C 63 18 161/87 H 98 01/03/20 23:32 36.6 C 69 20 120/64 97 01/03/20 19:36 36.5 C 60 18 102/52 L 95 01/03/20 16:24 79 01/03/20 15:47 36.4 C L 60 14 107/54 L 96 01/03/20 14:57 60 17 109/57 L 97 01/03/20 13:57 68 19 152/83 H 98 01/03/20 13:12 18 136/83 98 01/03/20 13:03 65 16 143/76 H 98 01/03/20 12:33 84 18 158/91 H 97 01/03/20 12:12 160 H 17 176/102 H 97 01/03/20 12:07 79 18 167/95 H 97 01/03/20 11:48 89 18 157/94 H 99 01/03/20 11:40 75 20 134/80 98 01/03/20 11:25 76 20 127/75 97 Notes Mental Status: alert / awake / arousable and participated in evaluation Patient Amnestic to Procedure: Yes Nausea / Vomiting: adequately controlled Pain: adequately controlled Airway Patency, RR, SpO2: stable & adequate BP & HR: stable & adequate Hydration State: stable & adequate Anesthetic Complications: no major complications apparent and Pt Satisfied with anesthetic care
[2020-01-04 07:46] LABS: INR 1.3 (0.9-1.1)
--- NOTE | 2020-01-04 07:58 | XRay Report ---
XR chest 2V PA/lateral HISTORY: Status post pacemaker placement. COMPARISON: None. FINDINGS: Left-sided pacemaker is noted. No pneumothorax. No pleural effusions. Poststernotomy change s and cervical spinal fusion hardware are present. The heart is normal in size. No focal lung consoli dations to suggest pneumonia. No evidence for pulmonary edema. Pacemaker leads appear intact. IMPRESSION: Status post left-sided pacemaker. No pneumothorax. ACT 112: Negative or not required by law. Electronically signed by: Lyndon Marie M.D. 01/04/2020 7:57 AM
[2020-01-04] MEDS: PYRIDOSTIGMINE BROMIDE 60 MG TAB PO SCH (08:56)
[2020-01-04] MEDS ORDERED: MULTIVITAMIN TAB PO SCH (09:00)
[2020-01-04] MEDS ORDERED: CHOLECALCIFEROL 1,000 UNITS 25 MCG TAB PO SCH (09:00)
[2020-01-04] MEDS ORDERED: LOSARTAN POTASSIUM 25 MG TAB PO SCH (09:00)
[2020-01-07] MEDS ORDERED: WARFARIN SOD 7.5 MG TAB PO SCH (16:00)
--- NOTE | 2020-01-09 02:20 | Operative Report (OR) ---
DATE OF OPERATION: 01/03/2020 PREOPERATIVE DIAGNOSES: Nonischemic cardiomyopathy, complete heart block, persistent atrial fibrillation. POSTOPERATIVE DIAGNOSES: Nonischemic cardiomyopathy, complete heart block, persistent atrial fibrillation. PROCEDURE: Upgrade from a single chamber permanent pacemaker to a biventricular rate responsive permanent pacemaker under fluoroscopic guidance along with peripheral venogram and intracardiac electrogram mapping of the His bundle region (the LV lead is positioned over the left bundle region). Peripheral venogram and coronary sinus venogram. SURGEON: Fabby Meier DO. ASSISTANTS: None. ANESTHESIA: Monitored anesthetic care administered via Anesthesiology. Please defer to their notes for complete details, but they gave a total of 2 mg of Versed, 100 mcg of fentanyl, 20 mg of ketamine and 540 mg of propofol. Start time was 08:33, end time was 11:12. IV FLUIDS: 250 mL. CONTRAST: 50 mL. ANTIBIOTICS: 600 mg of clindamycin. COMPLICATIONS: Small perforation of the coronary sinus. CONDITION: Stable. URINE OUTPUT: Not applicable. SPECIMENS: None. FINDINGS: See below. DRAINS: None. INDICATIONS: This is an 89-year-old gentleman with past medical history for recurrent atrial arrhythmias, seem to have become permanent atrial fibrillation and he underwent an AV beto ablation back in 2016 with a single chamber pacemaker. He has a history of coronary artery disease where he underwent a PCI to the RCA in 12/2015, then another PCI in 2016 and then a cath in 2017 after a STEMI, PCIs to the diagonal. Then a repeat cath in 11/2019, this year. All the stents were patent. Chronic heart failure with reduced ejection fraction, [place] Heart Association class III; nonischemic cardiomyopathy where his ejection fraction precipitously decreased to less than 30%, found in 11/2019; chronic back pain; hypertension; myasthenia gravis and GERD. He was recommended an upgrade to a biventricular device due to the heart failure and high RV pacing burden and significantly recently reduced ejection fraction. CONSENT: Consent was obtained prior to the patient going into Electrophysiology Lab. The patient was informed of risks, benefits and alternative to procedure. Risks include but not limited to sudden cardiac ; cardiac arrhythmias; cerebrovascular accident; myocardial infarction; injury to the blood vessels, chamber of the heart, lung; bleeding and infection. The patient understood these risks and agreed to the procedure as planned. Informed consent was obtained. DESCRIPTION OF THE PROCEDURE: The patient was brought into the Electrophysiology Lab in a fasting state. He was connected to continuous ekg monitor tech. Timeout was performed to ensure patient identity and procedure correctly. The patient was prepped and draped over the left infraclavicular space in normal surgical standard fashion. Monitored conscious sedation was given throughout the procedure for the patient's comfort level. [place] precautions were maintained throughout the procedure and he received prophylactic antibiotics prior to incision. A 10 mL of 1% lidocaine, bupivacaine mixture were given over the prior surgical incision. Incision was made with prior surgical incision using the PlasmaBlade, then blunt dissection performed down to the prior pulse generator, it was removed from the body. Then a peripheral venogram was performed to identify the axillary vein. The venous access was obtained through a needle stick. Then, a guidewire was inserted into the axillary vein without any difficulty. A 9.5-Guamanian sheath was inserted over the guidewire. The guidewire and dilator removed. Then, the MPX Medtronic outer coronary sinus sheath was advanced into right atrium over a Glidewire. The Glidewire and dilator removed and the CS was cannulated using a Biosense Decapolar catheter. Of note, it was at this time that I realized the patient was actually not in permanent atrial fibrillation, but in complete heart block. We did a venogram of the coronary sinus. There was a small perforation. There was only maybe a small branch in the posterolateral region. I was not even able to wire it, so I opted to put the left ventricular lead over the left bundle, so the MPX sheath was removed and the His sheath was inserted over a guidewire into the right atrium. Then, the guidewire and dilator removed and we did intracardiac mapping of the His bundle region unipolar through the pacing lead. We found that the AH was found to be 71 and the HV 90. The initial QRS was 160 seconds and end QRS was about 120 milliseconds. After I marked where the His was in CLAROS 30, I then adam a dot about 2 cm down an imaginary line to the apex and then I tried to position the His sheath with the lead about 2 cm below the His going towards the apex. Of note, I did have to reposition the lead a couple of times and I went through 3 His sheath, so I finally had an adequate signal as I kept screwing the lead into the septum into the left bundle . The His sheath was then slit under fluoroscopic guidance. I then slit the 9.5-Guamanian sheath and the lead was fixated to pectoralis muscle using 0 silk suture. A second venous access was obtained since the patient look to be in complete heart block during the procedure without any problems. A guidewire was inserted without any resistance and an 8-[place]amanian sheath was inserted with guidewire without any resistance. Guidewire and dilator removed. The lead was advanced into right atrium and positioned in the right atrial appendage under fluoroscopic guidance. There was adequate pacing and sensing thresholds and no diaphragmatic stimulation with high output pacing. The 8-Guamanian sheath was peeled away and lead was fixated to pectoralis muscle using 0 silk suture. The new pulse generator was attached to the right atrial and left bundle lead making sure the pins were in appropriate position, passed set screw and set screws were all tightened. Then, the right ventricular lead was detached from the old pacemaker, tested intraoperatively and then attached to the new pulse generator making sure the pins were in appropriate position, passed set screws and set screws were all tightened. Pulse generator was then placed in an antibiotic pouch and then placed in the pocket, making sure that the leads were lying flat beneath the device. The incision was then closed in a 3-layer fashion using 2-0 Vicryl interrupted suture followed by 3-0 Vicryl interrupted suture, followed by 4-0 Monocryl running stitch and Dermabond was applied followed by a Telfa and micropore dressing. EQUIPMENT: 1. Explanted generator is an Advisa SR [id number], serial number [id number], implanted 05/12/2016. 2. New pulse generator is a Medtronic Rima FILM SPLICER-P MRI SureScan, W1TR02, serial number [id number]. 3. The Tyrx pouch is reference [id number], lot number [id number], expiration 09/23/2020. 4. Right atrial lead is a Medtronic 5076-52 cm, serial number [id number]. 5. Right ventricular lead, 5076-58 cm, serial number [id number], implanted 05/12/2016. 6. Left bundle lead is a Medtronic 3830-69 cm, serial number [id number]. INTRAOPERATIVE TESTIN. Right atrial lead: P-wave 3.3 millivolts, impedance 615 ohms, threshold 0.4 volts at 0.5 milliseconds. 2. Right ventricular lead: R-wave not applicable as the patient is completely dependent. Impedance 518 ohms, threshold 0.75 volts at 0.5 milliseconds. 3. Left bundle lead: Impedance 811 ohms, threshold 0.4 volts at 0.5 milliseconds. FINAL PARAMETERS THROUGH THE DEVICE: 1. Right atrial lead: P-wave 3.6 millivolts, impedance 532 ohms, threshold 0.5 volts at 0.4 milliseconds. 2. Right ventricular lead: Impedance 494 ohms, threshold 0.75 volts at 0.4 milliseconds. No R waves. 3. Left bundle lead programmed LV tip to ring: Impedance 855 ohms, threshold 0.5 volts at 0.4 milliseconds. FINAL PARAMETERS: DDDR 60/130, right atrial amplitude 3.5 volts, pulse width 0.4 milliseconds, sensitivity 0.3 millivolts. Right ventricular amplitude 2 volts, pulse width 0.4 milliseconds, sensitivity 0.9 millivolts. Left ventricular amplitude 3.5 volts, pulse width 0.4 milliseconds. IMPRESSION: Successful upgrade from a single chamber pacemaker to a biventricular rate responsive permanent pacemaker under fluoroscopic guidance along with peripheral venogram and coronary sinus venogram as well as intracardiac mapping of the His bundle region, all due to nonischemic cardiomyopathy, complete heart block and acute heart failure. PLAN: Monitor the patient overnight, 12-lead ECG, chest x-ray. He is not allowed to lift left elbow or left shoulder for 1 month. He cannot lift more than 10 pounds with the left arm for 2 weeks. He is to leave the dressing on and dry until his wound check next week. I attest to the content of the Intraoperative Record and any orders documented therein. Any exceptions are noted below. KALYANI
== END 2020-01-04 09:29 | disposition home or self-care (01) ==
LOC: 2E 06:45 → EP 06:45